=== PATIENT | male | born 1985 | race Caucasian/White ===

== ENCOUNTER 2018-03-27 13:13 | Emergency (ER) | payer OTHER, MEDICAID ==
[~2018-03-27] VITALS: Ht 175.3 cm; Wt 124.7 kg
[~2018-03-27 13:13] MED LIST: AZITHROMYCIN 2250 MG PO; CLEOCIN HCL300 MG PO; MEDROLDOSEPACK PO; NOHOMEMEDICATIONS; NORCO 5-325 TA1 EACH PO; PENICILLIN VK500 M1 PO; PROAIR HFA8.5 GM IH; VICODIN; VICODIN 5-5001 EACH PO
[2018-03-27] MEDS ORDERED: METFORMIN HCL500 MG PO (13:32)
[2018-03-27] MEDS ORDERED: CYCLOBENZAPRINE5 MG PO (14:30)
[2018-03-27 14:41] VITALS: BP 142/79
== END 2018-03-27 14:42 | disposition home or self-care (01) ==
LOC: M.ERS 13:13
DX: M54.5 Low back pain (principal); F17.210 Nicotine dependence, cigarettes, uncomplicated; V49.19XA Passenger injured in collision with other motor vehicles in nontraffic accident, initial encounter; Y93.89 Activity, other specified; Y92.89 Other specified places as the place of occurrence of the external cause; Y99.8 Other external cause status

== ENCOUNTER 2018-09-30 17:23 | Emergency (ER) | payer OTHER, MEDICAID ==
[~2018-09-30] VITALS: Ht 177.8 cm; Wt 136.1 kg
[~2018-09-30 17:23] MED LIST changes: +CYCLOBENZAPRINE5 MG PO; +METFORMIN HCL500 MG PO
[2018-09-30] MEDS ORDERED: SERTRALINE HCL50 MG PO (17:31)
[2018-09-30 18:53] LABS: ABSOLUTE BASOPHILS 0.1 thou/uL (0.0-0.2); ABSOLUTE EOSINOPHILS 0.5 thou/uL (0.0-0.7); ABSOLUTE LYMPHOCYTES 1.4 thou/uL (0.8-5.3); ABSOLUTE MONOCYTES 0.5 thou/uL (0.0-1.2); ABSOLUTE NEUTROPHILS 4.6 thou/uL (1.6-8.1); BASOPHILS 1.2 %; EOSINOPHILS 6.5 %; HEMOGLOBIN 13.4 gm/dL (14.0-18.0); LYMPHOCYTES 19.2 %; MCH 27.9 pg (26.0-34.0); MCHC 34.2 g/dL (28.0-37.0); MCV 81.6 fL (80.0-100.0); MONOCYTES 7.6 %; MPV 7.6 fl. (7.2-11.1); NUCLEATED RBCS 0 /100WBC; PLATELET COUNT* 239 thou/uL (150-400); POLYS 65.5 %; RBC 4.79 mil/uL (4.50-6.00); RDW-CV 15.4 % (10.5-14.5); WBC 7.1 thou/uL (4.0-11.0)
[2018-09-30 19:10] LABS: ANION GAP 4 mmol/L (7-16); BUN 15 mg/dL (7-18); CALCIUM 8.9 mg/dL (8.5-10.1); CHLORIDE 99 mmol/L (98-107); CO2 30 mmol/L (21-32); GLUCOSE 243 mg/dL (70-99); POTASSIUM 4.3 mmol/L (3.5-5.1); SODIUM 133 mmol/L (136-145)
[2018-09-30 19:15] LABS: ALBUMIN 3.1 g/dL (3.4-5.0); ALKALINE PHOSPHATASE 156 U/L (46-116); SGOT 15 U/L (15-37); SGPT 36 U/L (30-65); TOTAL BILIRUBIN 0.2 mg/dL (<0.1-1.0); TOTAL PROTEIN 7.6 g/dL (6.4-8.2); TROPONIN-I LEVEL <0.06 ng/mL (<0.06)
[2018-09-30] MEDS ORDERED: ASPIRIN325 PO (19:18)
[2018-09-30 19:25] VITALS: BP 145/79
--- NOTE | 2018-10-01 11:48 | EKG ---
[place] [address] ELECTROCARDIOGRAM REPORT Name: DILAN GUILLAUME Room: [facility]#: [id number] Admission: 09/30/18 Attend Phys: Discharge: 09/30/18 Date of : 81 Report #: [id number] THIS REPORT FOR: //name// [facility] ED Test Date: 2018-09-30 Test Time: 17:27:03 Pat Name: DILAN SNACHEZIRA Department: Room: Gender: M [employer]: : 1985 Requested By: Marielle Horn Order Number: [id number] MD: Dominic Lawson Measurements Intervals [place] Rate: 83 P: 36 KS: 148 QRS: 26 QRSD: 92 T: 27 QT: 359 QTc: 422 Interpretive Statements Sinus rhythm Compared to ECG 03/16/2013 19:44:45 No significant changes Electronically Signed On 10-01-2018 11:48:36 ORGAN FIX[employer] by Dominic Lawson [email or web address] <ELECTRONICALLY SIGNED> By: Dominic Lawson MD, [facility] 10/01/18 1148 26 26 Dominic Lawson MD, [facility] /EPI
== END 2018-09-30 19:25 | disposition still patient (30) ==
LOC: M.ERS 17:23
PROVIDERS: Physician Assistant
DX: R07.81 Pleurodynia (principal); F17.210 Nicotine dependence, cigarettes, uncomplicated

== ENCOUNTER 2019-03-19 23:31 | Emergency (ER) | payer OTHER, MEDICAID ==
[~2019-03-19] VITALS: Ht 175.3 cm; Wt 130.2 kg
[~2019-03-19 23:31] MED LIST changes: +ASPIRIN325 PO; +SERTRALINE HCL50 MG PO
[2019-03-20 01:01] LABS: URINE BILIRUBIN NEGATIVE (Negative); URINE BLOOD 3+ (Negative); URINE CLARITY CLEAR; URINE COLOR YELLOW; URINE GLUCOSE-RANDOM 3+ (Negative); URINE KETONES NEGATIVE (Negative); URINE LEUKOCYTES NEGATIVE (Negative); URINE NITRITE NEGATIVE (Negative); URINE PROTEIN NEGATIVE (Negative); URINE UROBILINOGEN 0.2 E.U./dl (0.2-1.0)
[2019-03-20 01:13] LABS: BACTERIA >30 Many /HPF (None Seen); CASTS None Seen /LPF (None Seen); CRYSTALS None Seen /LPF (None Seen); MUCUS 0-3 Light strn/LPF (None Seen); SQUAMOUS 0-3 Few /LPF (0-3); WBC CLUMPS Few (None Seen)
[2019-03-20] MEDS ORDERED: NORCO 7.5-3251 EACH PO (01:44)
[2019-03-20] MEDS ORDERED: CIPROFLOXACIN500 M1 PO (01:44)
[2019-03-20] MEDS ORDERED: DIFLUCAN150 M1 PO (01:44)
[2019-03-20 01:58] VITALS: BP 132/68
== END 2019-03-20 01:58 | disposition home or self-care (01) ==
LOC: M.ERS 23:31
PROVIDERS: Emergency Medicine
DX: N39.0 Urinary tract infection, site not specified (principal); N48.89 Other specified disorders of penis; L53.9 Erythematous condition, unspecified; F17.210 Nicotine dependence, cigarettes, uncomplicated

== ENCOUNTER 2020-06-24 18:27 | Emergency (ER) | payer OTHER ==
[~2020-06-24] VITALS: Ht 175.3 cm; Wt 121.6 kg
[~2020-06-24 18:27] MED LIST changes: +CIPROFLOXACIN500 M1 PO; +DIFLUCAN150 M1 PO; +NORCO 7.5-3251 EACH PO
[2020-06-24] MEDS ORDERED: METFORMIN HCL500 M3 PO (18:38)
[2020-06-24 20:28] VITALS: BP 142/95
== END 2020-06-24 20:28 | disposition left against medical advice (07) ==
LOC: M.ERS 18:27
DX: Z53.21 Procedure and treatment not carried out due to patient leaving prior to being seen by health care provider (principal)

== ENCOUNTER 2020-06-28 11:06 | Emergency (ER) | payer OTHER ==
[~2020-06-28] VITALS: Ht 175.3 cm; Wt 122.5 kg
[~2020-06-28 11:06] MED LIST changes: +METFORMIN HCL500 M3 PO
[2020-06-28] MEDS ORDERED: TRAMADOL 50 MG50 MG PO (11:34)
[2020-06-28] MEDS ORDERED: AMOXICILLIN 50500 MG PO (11:34)
[2020-06-28 11:37] VITALS: BP 152/95
== END 2020-06-28 11:38 | disposition home or self-care (01) ==
LOC: M.ERS 11:06
DX: K02.9 Dental caries, unspecified (principal); E11.9 Type 2 diabetes mellitus without complications; F17.210 Nicotine dependence, cigarettes, uncomplicated